=== PATIENT | male | born 1950 | race Caucasian/White ===

== ENCOUNTER 2017-09-26 10:02 | Day surgery (SDC) | payer MEDICARE, OTHER ==
[~2017-09-26] VITALS: Ht 154.9 cm; Wt 87.0 kg
[2017-09-26 10:37] VITALS: Ht 154.9 cm; Wt 87.0 kg
[2017-09-26] MEDS ORDERED: HTN MEDS (10:39)
[2017-09-26] MEDS ORDERED: CHOLESTEROL MED PO (10:39)
[2017-09-26] MEDS ORDERED: DIABETES MED PO (10:39)
[2017-09-26] MEDS ORDERED: THYROID MED (10:39)
[2017-09-26] MEDS ORDERED: FENTAnyl 50 MCG/ML VIAL ONE (10:45)
[2017-09-26] MEDS ORDERED: PROPOFOL 20 ML ONE (10:45)
[2017-09-26] MEDS ORDERED: MIDAZOLAM 1 MG/ML 2 ML INJ ONE (10:45)
[2017-09-26 10:50] VITALS: BP 132/74; PULSE 65; RESP 19
--- NOTE | 2017-09-26 11:23 | OPPN ---
Date/Time of Note Date/Time of Note DATE: 09/26/17 TIME: 11:22 Operative Report Preoperative Diagnosis Screening Postoperative Diagnosis Internal hemorrhoids No colon neoplasm is identified Operation/Procedure Performed Colonoscopy Surgeon see signature line players assistant None Anesthesia: MAC Estimated blood loss: none Transfusion Required none Specimen None Grafts/Implants none Complications none LAUREN PRITCHETT MD Sep 26, 2017 11:23
[2017-09-26 11:47] VITALS: BP 115/78; PULSE 64; RESP 16
--- NOTE | 2017-09-26 13:49 | GILP ---
DATE OF PROCEDURE: NAME OF PROCEDURE: Colonoscopy. SURGEON: Lauren Castillo MD PREOPERATIVE DIAGNOSIS: Screening colonoscopy. POSTOPERATIVE DIAGNOSES 1. Colonoscopy all the way to the cecum. 2. Internal hemorrhoids. 3. No colon neoplasm was identified. INDICATION FOR THE PROCEDURE: Mr. Philipp Suarez is a 67-year-old male patient who was scheduled for screening colonoscopy. The procedure and possible complications were well explained to the patient. The patient understood and consented to the procedure. DESCRIPTION OF PROCEDURE: Under the influence of anesthesia, the colonoscope was carefully introduc ed in the rectum and under direct vision it was advanced all the way to the cecum. FINDINGS: The patient was noted to have internal hemorrhoids. No colon neoplasm was identified. He tolerated the procedure very well and there was no complication from the procedure. At the end o f the procedure, he was awake with stable vital signs and he was discharged home to the care of his family. IMPRESSION: Please see postoperative diagnosis. PLAN: Next screening colonoscopy in 10 years. Dictated By: LAUREN ELLIOTT/MCKAY Conf#: [id number] DID#: [id number]
== END 2017-09-26 11:44 | disposition home or self-care (01) ==
LOC: GIL 10:02
PROVIDERS: ATTEND Internal Medicine Gastroenterology
DX: Z12.11 Encounter for screening for malignant neoplasm of colon (principal); K64.8 Other hemorrhoids; E11.9 Type 2 diabetes mellitus without complications; E78.5 Hyperlipidemia, unspecified; I10 Essential (primary) hypertension; E03.9 Hypothyroidism, unspecified
CPT/HCPCS: 82962; G0121; J2250; J3010

== ENCOUNTER 2018-10-04 13:35 | Emergency (ER) | END 2018-10-04 15:58 | disposition home or self-care (01) ==

== ENCOUNTER 2019-01-15 18:21 | Emergency (ER) | payer OTHER ==
[~2019-01-15] VITALS: Ht 152.4 cm; Wt 87.7 kg
[~2019-01-15 18:21] MED LIST: CHOLESTEROL MED PO; DIABETES MED PO; HTN MEDS; IBUP-1542 PO; THYROID MED
[2019-01-15 19:19] VITALS: Ht 152.4 cm; Wt 87.7 kg
[2019-01-15] MEDS ORDERED: SOD CHLORIDE 0.9% 1,000 ML IV STA (21:25)
[2019-01-15] MEDS ORDERED: ACETAMINOPHEN 500 MG TAB PO STA (21:25)
[2019-01-15] MEDS ORDERED: ALBUTEROL/IPRATROPIUM (NEB) 3 ML AMP HHN STA (21:25)
[2019-01-15] MEDS ORDERED: IBUPROFEN 800 MG TAB PO ONE (21:30)
[2019-01-15] MEDS ORDERED: ALBUTEROL 0.083% (NEB) 2.5 MG/3 ML AMP NEB STA (23:13)
[2019-01-15] MEDS ORDERED: IPRATROPIUM (NEB) 0.5 MG/2.5 ML AMP NEB STA (23:13)
[2019-01-15] MEDS ORDERED: AZITHROMYCIN 500 MG TAB PO ONE (23:30)
--- NOTE | 2019-01-15 23:41 | ERD ---
ER Documentation Chief Complaint Chief Complaint fever/body aches/ECHEVARRIA x3 days HPI This is a 68-year-old male with a past medical history of hypertension and diabetes who presents to the emergency department with 3 days of generalized fever shaking chills, myalgias. Contrary to the triage note the patient was not complaining of a headache. He stated he was complaining of difficulty in breathing with a productive cough. He states he has had whitish sputum. He said a decrease in appetite. He has not complained of any abdominal pain. He had no sick contacts or recent hospitalizations. He denies any shortness of breath at rest or exertion. He has had no prolonged travel or immobilization. He denies any swelling of his lower extremities. He denies any chest pain or pressure. His last dose of Tylenol was roughly 12 hours prior to arrival ROS All systems reviewed and are negative except as per history of present illness. Medications Home Meds Active Scripts Ibuprofen* (Motrin*) 600 Mg Tab, 600 MG PO Q6, #30 TAB Prov:ALBERTO BOLAÑOS MD 10/04/18 Reported Medications [Thyroid Med] No Conflict Check 09/26/17 [Cholesterol Med] No Conflict Check, PO 09/26/17 [Diabetes Med] No Conflict Check, PO 09/26/17 [Htn Meds] No Conflict Check 09/26/17 Allergies Allergies: Coded Allergies: No Known Allergy (Unverified , 09/26/17) PMhx/Soc History of Surgery: No Anesthesia Reaction: No Hx Neurological Disorder: No Hx Respiratory Disorders: No Hx Cardiac Disorders: Yes (HTN) Hx Psychiatric Problems: Yes (HYPERLIPID) Hx Miscellaneous Medical Probl: Yes (DM ) Hx Alcohol Use: No Hx Substance Use: No Hx Tobacco Use: Yes (10 YRS) Smoking Status: Former smoker Physical Exam Vitals Vital Signs Date Temp Pulse Resp B/P (MAP) Pulse Ox O2 O2 Flow FiO2 Time Delivery Rate 01/15/19 97.9 92 19 135/65 92 Nasal 2.0 23:24 (88) Cannula 01/15/19 2.0 22:08 01/15/19 78 20 97 Nasal 2.0 22:04 Cannula 01/15/19 102.2 68 15 127/78 95 Nasal 2.0 21:56 (94) Cannula 01/15/19 102.2 21:42 01/15/19 102.2 21:42 4/3/19 102.4 72 18 214/97 91 19:19 (136) Physical Exam Constitutional:Well-developed. Well-nourished. HEENT:Normocephalic. Atraumatic.Pupils were equal round reactive to light. Very dry mucous membranes. Bilateral tonsillar exudates with uvula midline. Azotemia the oropharynx. Neck: No nuchal rigidity. No lymphadenopathy. No posterior cervical spine tenderness or step-offs. Respiratory: Not using accessory muscles of respiration.Lungs were clear to auscultation bilaterally. No rhonchi. No rales. Wheezing bilaterally. Cardiovascular: Regular rate regular rhythm.No murmurs. No rubs were a ppreciated.S1, S2 normal. Distal pulses are palpable 2+ bilaterally. GI: Abdomen was soft. Nontender. Non Distended. No pulsatile abdominal masses or bruits. No rebound. No guarding. Bowel sounds were present and normal. Muscle skeletal: Full range of motion of both the upper and lower extremities bilaterally.Normal muscle tone.No assymetrical calf tenderness or swelling. Skin: No petechia, no purpura. No lesions on the palms or the soles of the feet. No maculopapular rash. NEURO: Patient was alert, awake, orientated x3.No facial droop. Gait observed and normal with no ataxia.Speech had regular rate and rhythm. No focal neurological deficits. Result Diagram: 01/15/19213601/15/192136 Results 24 hrs Laboratory Tests Test 01/15/19 21:37 01/15/19 22:00 White Blood Count 7.2 10^3/ul Red Blood Count 4.53 10^6/ul Hemoglobin 14.2 g/dl Hematocrit 41.7 % Mean Corpuscular Volume 92.1 fl Mean Corpuscular Hemoglobin 31.3 pg Mean Corpuscular Hemoglobin Concent 34.1 g/dl Red Cell Distribution Width 13.7 % Platelet Count 145 10^3/UL Mean Platelet Volume 10.6 fl Immature Granulocytes % 0.700 % Neutrophils % 61.0 % Lymphocytes % 26.6 % Monocytes % 9.5 % Eosinophils % 1.8 % Basophils % 0.4 % Nucleated Red Blood Cells % 0.0 /100WBC Immature Granulocytes # 0.050 10^3/ul Neutrophils # 4.4 10^3/ul Lymphocytes # 1.9 10^3/ul Monocytes # 0.7 10^3/ul Eosinophils # 0.1 10^3/ul Basophils # 0.0 10^3/ul Nucleated Red Blood Cells # 0.0 10^3/ul Prothrombin Time 12.6 Sec Prothrombin Time Ratio 1.0 INR International Normalized Ratio 0.93 Activated Partial Thromboplast Time 31.2 Sec Sodium Level 139 mmol/L Potassium Level 3.6 mmol/L Chloride Level 102 mmol/L Carbon Dioxide Level 27 mmol/L Anion Gap 10 Blood Urea Nitrogen 14 mg/dl Creatinine 0.85 mg/dl Est Glomerular Filtrat Rate mL/min > 60 mL/min Glucose Level 125 mg/dl Calcium Level 9.2 mg/dl Total Bilirubin 0.5 mg/dl Direct Bilirubin 0.00 mg/dl Indirect Bilirubin 0.5 mg/dl Aspartate Amino Transf (AST/SGOT) 28 IU/L Alanine Aminotransferase (ALT/SGPT) 17 IU/L Alkaline Phosphatase 84 IU/L B-Type Natriuretic Peptide 95 PG/ML Total Protein 8.0 g/dl Albumin 4.4 g/dl Globulin 3.60 g/dl Albumin/Globulin Ratio 1.22 Amylase Level 67 U/L Lipase 44 U/L Urine Color YELLOW Urine Clarity SLIGHTLY CLOUDY Urine pH 5.0 Urine Specific [place] 1.021 Urine Ketones NEGATIVE mg/dL Urine Nitrite NEGATIVE mg/dL Urine Bilirubin NEGATIVE mg/dL Urine Urobilinogen NEGATIVE mg/dL Urine Leukocyte Esterase NEGATIVE Emilee/ul Urine Microscopic RBC 2 /HPF Urine Microscopic WBC 1 /HPF Urine Mucus FEW /HPF Urine Hemoglobin NEGATIVE mg/dL Urine Glucose NEGATIVE mg/dL Urine Total Protein 1+ mg/dl Current Medications Medications Dose Sig/Mahsa Start Time Status Last (Trade) Ordered Route PRN Stop Time Admin Dose Reason Admin Sodium 1,000 ml @ Q1H STAT 01/15/19 DC 01/15/19 Chloride 1,000 mls/hr IV 21:25 01/15/19 21:42 22:24 1,000 mg ONCE STAT 01/15/19 DC 01/15/19 Acetaminophen PO 21:25 01/15/19 21:42 (Tylenol 21:28 Tab) Ibuprofen 800 mg ONCE ONCE 01/15/19 DC 01/15/19 (Motrin) PO 21:30 01/15/19 21:42 21:31 Albuterol/ 3 ml ONCE STAT 01/15/19 DC 01/15/19 Ipratropium HHN 21:25 01/15/19 22:03 (Duoneb) 21:28 Albuterol 5 mg ONCE STAT 01/15/19 DC (Proventil NEB 23:13 01/15/19 0.083% (Neb)) 23:24 Ipratropium 0.5 mg ONCE STAT 01/15/19 DC Newberry NEB 23:13 01/15/19 (Atrovent 23:24 0.02% (Neb)) 500 mg ONCE ONCE 01/15/19 DC Azithromycin PO 23:30 01/15/19 (Zithromax) 23:31 Procedures/MDM This is a 68-year-old male that presented to the emergency department febrile but did not meet Sirs criteria. The patient presented to the emergency department with a flulike illness. The patient was immediately placed on a quality assurance monitor final continuous pulse oximetry and IV access was established by nursing staff. The patient received IV fluids and antipyretics. The patient received nebulizer treatments. Chest radiograph was obtained and showed no infiltrates or pneumothorax. The patient's influenza swab was negative. The pa tiedebbie did have bilateral tonsillar exudates that could be result in the patient's fever and will also be treated for bacterial pharyngitis. The patient had ancillary laboratory work that showed no severe electrolyte abnormalities. The patient had no leukocytosis. The patient was hypertensive when he initially arrived. There is no signs of endorgan damage to suggest hypertensive emergency or urgency. He did not require any antihypertensive medications and his blood pressure improved after r eceiving antipyretics Observation Note: Time: 5 hours Family Hx: No Hypertension Evaluation: Multiple exams showed improving symptoms and no evidence of worsening of his symptoms. He was hypoxic at 92% on 2 L nasal cannula. However I felt was positional as the patient sat up and improved to 98% on room air as it was at bedside watching the patient at 11:36 PM. I did not feel the patient had any risk factors for pulmonary embolism. There is no evidence of congestive heart failure. The patient was treated for suspected bronchitis and pharyngitis. He received first dose of azithromycin in the emergency department. He received a further dose of bronchodilators with significant improvement of his symptoms. He was speaking in full complete sentences and no dyspnea at discharge. Departure Diagnosis: Primary Impression: Bronchitis Additional Impression: Flu-like symptoms Condition: Fair PATTY,BABITA MD Jan 15, 2019 23:40
[2019-01-15] MEDS ORDERED: AZIT250T PO (23:48)
[2019-01-15] MEDS ORDERED: IBUP800T48 PO (23:48)
[2019-01-15] MEDS ORDERED: ALBU8.5H8 INH (23:48)
[2019-01-16 00:24] VITALS: BP 136/64; PULSE 81; RESP 19
== END 2019-01-16 00:25 | disposition home or self-care (01) ==
LOC: E/R 18:21
DX: J40 Bronchitis, not specified as acute or chronic (principal); I10 Essential (primary) hypertension; E11.9 Type 2 diabetes mellitus without complications; Z87.891 Personal history of nicotine dependence
CPT/HCPCS: 36415; 71045; 80053; 81001; 82150; 83690; 83880; 85025; 85610; 85730; 87400; 93005; 94640; 94664; 99285; J7030